=== PATIENT | female | born 1970 | race Caucasian/White ===

== ENCOUNTER 2020-04-23 01:44 | Observation (INO) | payer OTHER ==
[2020-04-23] MEDS ORDERED: Ondansetron PF 4 MG/2 ML Vial ONE (02:04)
[2020-04-23 02:23] LABS: #Lymphocytes 1.7 thou/uL (1.20-3.40); #Monocytes 0.6 thou/uL (0.11-0.59); #Neutrophils 3.6 thou/uL (1.40-6.50); %Basophils 0.4 % (0.0-1.0); %Eosinophils 0.6 % (0.0-10.0); %Lymphocytes 28.8 % (21.0-51.0); %Monocytes 10.3 % (0.0-10.0); %Neutrophils 59.8 % (42.0-75.0); Hemoglobin 14.8 g/dL (12.0-16.0); Mean Corpuscular HGB CONC 32.1 g/dL (32.0-36.0); Mean Corpuscular Volume 90.5 fL (78.0-98.0); Mean Platelet Volume 7.4 fL (7.4-10.4); Platelet Count 209 thou/uL (130-400); RBC Distribution Width 12.5 % (11.5-14.5); Red Blood Cell (RBC) Count 5.11 mill/uL (4.20-5.40); White Blood Cell (WBC) Count 6.1 thou/uL (4.8-10.8)
[2020-04-23 02:33] LABS: ALT (SGPT) 20 U/L (8-55); AST (SGOT) 16 U/L (5-34); Albumin 4.1 g/dL (3.5-5.0); Alkaline Phosphatase 99 U/L (40-110); Anion Gap 16 mmol/L (10-20); BUN (Urea Nitrogen) 12 mg/dL (7.0-18.7); Bilirubin, Total 0.3 mg/dL (0.2-1.2); Calc. Creatinine Clearance 0 mL/min (70-130); Calcium 8.5 mg/dL (7.8-10.44); Carbon Dioxide 21 mmol/L (22-29); Chloride 106 mmol/L (98-107); Globulin 3.3 g/dL (2.4-3.5); Glucose 129 mg/dL (70-105); Lipase 29 U/L (8-78); Potassium 3.7 mmol/L (3.5-5.1); Protein, Total 7.4 g/dL (6.0-8.3); Sodium 139 mmol/L (136-145)
[2020-04-23] MEDS ORDERED: diphenhydrAMINE 50 MG/ML VIAL ONE (02:42)
[2020-04-23] MEDS ORDERED: cefTRIAXone\\ROCEPHIN 2 GM VIAL ONE (02:42)
[2020-04-23] MEDS ORDERED: Dexamethasone 4 mg/ml Vial ONE ×2 (02:42→08:43)
[2020-04-23] MEDS ORDERED: Metoclopramide HCl 10 MG/2 ML VIAL ONE (02:42)
[2020-04-23] MEDS ORDERED: Ketorolac Tromethamine 30 MG/ML VIAL ONE (02:42)
[2020-04-23] MEDS ORDERED: Famotidine In NaCl 20 mg/50 ml Premix Bag ONE (02:42)
[2020-04-23] MEDS ORDERED: Benzonatate 100 MG CAP PO PRN ×2 (03:57→06:29)
[2020-04-23] MEDS ORDERED: HYDROcodone/Acetaminophen 5/325 mg Tablet PO PRN ×2 (04:00)
[2020-04-23] MEDS ORDERED: Ondansetron PF 4 MG/2 ML Vial IVP PRN (04:00)
[2020-04-23] MEDS ORDERED: Acetaminophen 325 MG TAB PO PRN (04:00)
[2020-04-23] MEDS ORDERED: Ondansetron ODT 4 MG TAB SL PRN (04:00)
[2020-04-23] MEDS ORDERED: Dextrose 5 %-0.45 % NaCl 1,000 ML IV SCH (04:00)
[2020-04-23 04:09] LABS: SARS-CoV-2 NAA Rapid Test DETECTED (NotDetected)
[2020-04-23 04:32] VITALS: BMI 31.4
--- NOTE | 2020-04-23 07:59 | HP ---
Same-day Observation and Discharge. CHIEF COMPLAINT: Fever and emesis. HISTORY OF PRESENT ILLNESS: This is a 49-year-old female who typically lives in [place] and is currently here locally visiting family for the holidays, who presented to the [facility] Emergency Department overnight secondary to worsening cough, fever, emesis, and episode of diarrhea, migraine headache, and chest discomfort with deep inspiration. The patient has had upper respiratory symptoms for the last 5 to 6 days that progressively worsened. She was diagnosed to be COVID positive yesterday after being tested in [place]. She was subsequently started on azithromycin and a cough medication as of yesterday; however, as noted her condition declined. Workup in the emergency department showed findings consisted of COVID pneumonia per imaging. She did present in a febrile state and was notably diaphoretic. Due to her worsening respiratory status and inability to tolerate p.o. intake, she was admitted under observation status. In the emergency department, she did receive IV dexamethasone, IV Rocephin, IV Zofran, normal saline and injections of Toradol and Reglan. She was admitted to the floor to continue these medications. As of this morning upon review of the patient, she is resting comfortably in bed and stable on room air. She reports to be feeling much improved. Her migraine headache has dissipated and she has been able to tolerate p.o. fluids with no further emesis. She does feel that the addition of dexamethasone has been particularly helpful for her and is amenable to discharge home on a continued course of this and her other previously prescribed medications for her COVID positive diagnosis. PAST MEDICAL HISTORY: Includes lupus and rheumatoid arthritis. She is not on medications for these conditions as she states her most recent flare was 4-5 months prior. PAST SURGICAL HISTORY: Includes uterine tumor removal in 2017. SOCIAL HISTORY: The patient is a nonsmoker with no illicit drug use. She does have social ETOH use. ALLERGIES: NO KNOWN DRUG ALLERGIES. FAMILY HISTORY: Noncontributory. CURRENT MEDICATIONS: The patient takes no daily medications. REVIEW OF SYSTEMS: GENERAL: The patient reports recent fever. EARS, NOSE AND THROAT: She denies sore throat. She has had loss of smell and taste. CARDIOVASCULAR: She denies current chest pain or palpitations. RESPIRATORY: She has had cough and shortness of breath. GASTROINTESTINAL: Denies abdominal pain. She has had nausea, vomiting and an episode of diarrhea. GENITOURINARY: Denies dysuria. MUSCULOSKELETAL: She has chronic intermittent joint pain. DERM: Denies rash. NEURO: She presented with headache. LABORATORY DATA: White blood cell count of 6.1, hemoglobin is 14.8, hematocrit 46.3, platelets 209. D-dimer 0.36. Sodium 139, potassium 3.7, BUN 12, creatinine 0.77, GFR 79, glucose 129, lactic acid 1.8, AST 16, ALT 20, lipase 29. Influenza testing for A and B was negative. COVID testing was positive. IMAGING STUDIES: Official radiological read is pending; however, preliminary read is consistent with COVID changes. PHYSICAL EXAMINATION: VITAL SIGNS: Temperature is 98, pulse is 80, blood pressure is 102/74, respiratory rate is 18, oxygen is 95% on room air. GENERAL: The patient is alert and oriented, in no acute distress. She is overweight. HEAD, EYES, EARS, NOSE, AND THROAT: She is normocephalic and atraumatic. Pupils are equal, round, and reactive to light. Extraocular muscles are intact bilaterally. Sclerae are clear. She has moist mucous membranes. NECK: Supple without lymphadenopathy. CARDIOVASCULAR: Regular rate and rhythm. Normal S1, S2. No murmurs, rubs, or gallops. RESPIRATORY: She has slightly diminished breath sounds with mild crackles to lung bases. No wheezing or respiratory distress. ABDOMEN: Soft and nontender to palpation with no rebound or guarding. SKIN: Shows no rashes. EXTREMITIES: No clubbing, cyanosis, or edema. NEURO: Nonfocal with cranial nerves 2 through 12 grossly intact. ASSESSMENT AND PLAN: 1. COVID pneumonia. The patient is stable for discharge back to her home at this time, status post observation admission. She will continue her prescribed course of azithromycin. I will add a course of dexamethasone 6 mg to take daily for the next 7 days. She may further take her cough medication for symptomatic care along with Tylenol as needed for fever. She is stable on room air and in no respiratory distress. She is aware of need for isolation precautions in regard to her diagnosis and to seek medical care for any notable worsening of her current condition. She has been advised to supplement zinc, vitamin C, and vitamin D as able. 2. Nausea and vomiting. This was resolved and she is tolerating p.o. intake. 3. Migraine headache. This was also resolved and may treat symptomatically at home as needed. 4. Lupus. The patient is not on immunosuppressive therapy in regard to this diagnosis. 5. Dehydration, resolved, status post intravenous fluids received overnight. As stated, she is tolerating p.o. well at this time. 6. Disposition: The patient will discharge home at this time with a plan to complete her course of antibiotics and course of prescribed p.o. dexamethasone. Job ID: [id number]
[2020-04-23 08:22] VITALS: BP 102/64; TEMP 96.8
[2020-04-23] MEDS ORDERED: AZITHROMYCIN PO SCH (09:00)
[2020-04-23] MEDS ORDERED: Enoxaparin Sodium 40 MG/0.4 ML SYRINGE SC SCH (09:00)
[2020-04-23] MEDS ORDERED: Pantoprazole 40 MG GRANULES PACKET PO SCH (09:00)
[2020-04-23] MEDS ORDERED: Dexamethasone 4 mg/ml Vial SLOW IVP SCH (09:00)
[2020-04-23] MEDS ORDERED: Saccharomyces boulardii 250 MG CAP PO SCH (09:00)
[2020-04-23] MEDS ORDERED: Azithromycin 250 MG TAB PO SCH ×2 (09:00)
--- NOTE | 2020-04-23 09:43 | RAD ---
PORTABLE CHEST: DATE: 04/23/2020. FINDINGS: An AP portable film at 0224 shows developing linear infiltrates in each lung base. In some areas, it is a little more patchy than linear. The findings could easily be connected to her recent positive COVID test. The upper lobes were clear. The heart size is normal. IMPRESSION: Developing basilar infiltrates POS: HOME
[2020-04-24] MEDS ORDERED: cefTRIAXone\\ROCEPHIN 1 GM in Sodium Chloride 0.9% 100 ML IVPB SCH (03:00)
== END 2020-04-23 11:30 | disposition home or self-care (01) ==
LOC: BURERS 01:44 → BURMED 03:53
PROVIDERS: ADMIT Family Medicine; ATTEND Family Medicine
DX: U07.1 COVID-19 (principal); J12.89 Other viral pneumonia; G43.909 Migraine, unspecified, not intractable, without status migrainosus; M32.9 Systemic lupus erythematosus, unspecified; E86.0 Dehydration; M06.9 Rheumatoid arthritis, unspecified; Z79.2 Long term (current) use of antibiotics
CPT/HCPCS: 0240U; 71045; 80053; 83605; 83690; 85025; 85379; 87040; 96361; 96365; 96367; 96372; 96375; 96376; G0378; J0696; J1100; J1200; J1650; J1885; J2405; J2765